=== PATIENT | female | born 1960 | race Hispanic/Latino ===

== ENCOUNTER 2016-07-17 10:14 | Emergency (ER) | payer OTHER, BC ==
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
[2016-07-17 12:17] VITALS: BP 123/74; PULSE 98; RESP 18; TEMP 97; O2SAT 99
--- NOTE | 2016-07-17 12:29 | RAD ---
Left knee History: Left knee pain. Findings: Two views the left knee were obtained. Patient is status post left knee surgery. Cannulated screw noted. Mild tricompartmental arthritis. No displaced fracture. Small to moderate sized suprapatellar joint effusion. Impression: Status post surgery. No apparent displaced fracture. Small effusion.
== END 2016-07-17 13:00 | disposition home or self-care (01) ==
LOC: H.ER 10:14
DX: S16.1XXA Strain of muscle, fascia and tendon at neck level, initial encounter (principal); S83.92XA Sprain of unspecified site of left knee, initial encounter; V43.52XA Car driver injured in collision with other type car in traffic accident, initial encounter; Y92.410 Unspecified street and highway as the place of occurrence of the external cause; E03.9 Hypothyroidism, unspecified; M79.1 Myalgia